=== PATIENT | female | born 1955 | race Caucasian/White ===

== ENCOUNTER → 2024-08-20 | Outpatient (CLI) | payer MEDICARE, MEDICAID, SELFPAY ==
[2024-08-20 12:44] LABS: INR 2.8 (0.9-1.3); Prothrombin Time 28.5 Seconds (9.0-12.2)
== END | disposition home or self-care (01) ==
LOC: COPL 11:20
PROVIDERS: PCP Nurse Practitioner Family; Referring Provider Internal Medicine Cardiovascular Disease; Visit Provider Internal Medicine Cardiovascular Disease
DX: I35.8 Other nonrheumatic aortic valve disorders (principal); I50.22 Chronic systolic (congestive) heart failure; I47.10 Supraventricular tachycardia, unspecified
CPT/HCPCS: 36415; 85610

== ENCOUNTER → 2024-09-04 | Outpatient (CLI) | payer MEDICARE, MEDICAID, SELFPAY ==
[2024-09-14 06:58] LABS: Fecal Globin Result NOT DETECTED (NOT DETECTED)
== END | disposition home or self-care (01) ==
LOC: SLDO 14:49
PROVIDERS: Referring Provider Nurse Practitioner Family; Visit Provider Nurse Practitioner Family
DX: Z12.11 Encounter for screening for malignant neoplasm of colon (principal)
CPT/HCPCS: 82274; G0328

== ENCOUNTER → 2024-09-21 | Outpatient (CLI) | payer MEDICARE, MEDICAID, SELFPAY ==
[2024-09-21 13:40] LABS: INR 2.4 (0.9-1.3); Prothrombin Time 24.5 Seconds (9.0-12.2)
== END | disposition home or self-care (01) ==
LOC: COPL 11:45
PROVIDERS: PCP Nurse Practitioner Family; Referring Provider Internal Medicine Cardiovascular Disease; Visit Provider Internal Medicine Cardiovascular Disease
DX: I35.8 Other nonrheumatic aortic valve disorders (principal); I50.22 Chronic systolic (congestive) heart failure; I47.10 Supraventricular tachycardia, unspecified
CPT/HCPCS: 36415; 85610

== ENCOUNTER → 2024-10-19 | Outpatient (CLI) | payer MEDICARE, MEDICAID, SELFPAY ==
[2024-10-19 13:33] LABS: INR 2.5 (0.9-1.3); Prothrombin Time 25.3 Seconds (9.0-12.2)
== END | disposition home or self-care (01) ==
LOC: COPL 11:56
PROVIDERS: PCP Nurse Practitioner Family; Referring Provider Internal Medicine Cardiovascular Disease; Visit Provider Internal Medicine Cardiovascular Disease
DX: I35.8 Other nonrheumatic aortic valve disorders (principal); I50.22 Chronic systolic (congestive) heart failure; I47.10 Supraventricular tachycardia, unspecified
CPT/HCPCS: 36415; 85610

== ENCOUNTER → 2024-11-20 | Outpatient (CLI) | payer MEDICARE, MEDICAID, SELFPAY ==
[2024-11-20 12:16] LABS: INR 2.3 (0.9-1.3); Prothrombin Time 23.8 Seconds (9.0-12.2)
== END | disposition home or self-care (01) ==
PROVIDERS: Referring Provider Internal Medicine Cardiovascular Disease; Visit Provider Internal Medicine Cardiovascular Disease
DX: I35.8 Other nonrheumatic aortic valve disorders (principal); I47.10 Supraventricular tachycardia, unspecified; I50.22 Chronic systolic (congestive) heart failure
CPT/HCPCS: 36415; 85610

== ENCOUNTER → 2024-12-18 | Outpatient (CLI) | payer MEDICARE, MEDICAID, SELFPAY ==
[2024-12-18 13:31] LABS: INR 1.9 (0.9-1.3); Prothrombin Time 19.8 Seconds (9.0-12.2)
== END | disposition home or self-care (01) ==
PROVIDERS: PCP Internal Medicine Cardiovascular Disease; Referring Provider Internal Medicine Cardiovascular Disease; Visit Provider Internal Medicine Cardiovascular Disease
DX: I35.8 Other nonrheumatic aortic valve disorders (principal); I50.22 Chronic systolic (congestive) heart failure; I47.10 Supraventricular tachycardia, unspecified
CPT/HCPCS: 36415; 85610

== ENCOUNTER → 2025-01-19 | Outpatient (CLI) | payer MEDICARE, MEDICAID, SELFPAY ==
[2025-01-19 13:36] LABS: INR 2.1 (0.9-1.3); Prothrombin Time 21.9 Seconds (9.0-12.2)
== END | disposition home or self-care (01) ==
LOC: COPL 12:16
PROVIDERS: PCP Registered Nurse Community Health; Referring Provider Internal Medicine Cardiovascular Disease; Visit Provider Internal Medicine Cardiovascular Disease
DX: I35.8 Other nonrheumatic aortic valve disorders (principal); I50.22 Chronic systolic (congestive) heart failure; I47.10 Supraventricular tachycardia, unspecified
CPT/HCPCS: 36415; 85610

== ENCOUNTER → 2025-02-15 | Outpatient (CLI) | payer MEDICARE, MEDICAID, SELFPAY ==
[2025-02-15 12:55] LABS: INR 2.6 (0.9-1.3); Prothrombin Time 26.4 Seconds (9.0-12.2)
== END | disposition home or self-care (01) ==
LOC: COPL 12:10
PROVIDERS: Referring Provider Internal Medicine Cardiovascular Disease; Visit Provider Internal Medicine Cardiovascular Disease
DX: I35.8 Other nonrheumatic aortic valve disorders (principal); I47.10 Supraventricular tachycardia, unspecified; I50.22 Chronic systolic (congestive) heart failure
CPT/HCPCS: 36415; 85610

== ENCOUNTER → 2025-03-18 | Outpatient (CLI) | payer MEDICARE, MEDICAID, SELFPAY ==
[2025-03-18 11:09] LABS: Basophils # (Auto) 0.1 Thou/mm3 (0.0-0.2); Basophils % (Auto) 1 % (0-2.5); Eosinophils # (Auto) 0.1 Thou/mm3 (0.0-0.5); Eosinophils % (Auto) 2 % (0-10); Hemoglobin 11.9 g/dL (12.0-16.0); Immature Granulocytes % (Auto) 0 % (0-0); Immature Granulocytes Auto 0.01 Thou/mm3 (0.00-0.00); Lymphocytes # (Auto) 1.4 Thou/mm3 (1.0-4.8); Lymphocytes % (Auto) 24 % (10-50); Mean Corpuscular Hemoglobin 28.7 pg (25.0-35.0); Mean Corpuscular Volume 85 fL (80-100); Monocytes # (Auto) 0.5 Thou/mm3 (0.0-0.8); Monocytes % (Auto) 9 % (0-12); Neutrophils # (Auto) 3.8 Thou/mm3 (1.8-7.7); Neutrophils % (Auto) 64 % (37-80); Nucleated Red Blood Cell % 0 /100 WBC (0); Platelet Count 178 Thou/mm3 (140-440); RDW Standard Deviation 43.7 fL (36.4-46.3); Red Blood Count 4.14 Miln/mm3 (4.00-5.20); White Blood Count 5.9 Thou/mm3 (3.6-11.0)
[2025-03-18 11:12] LABS: INR 2.1 (0.9-1.3); Prothrombin Time 22.2 Seconds (9.0-12.2)
[2025-03-18 11:42] LABS: Alanine Aminotransferase 21 U/L (10-49); Albumin, Serum 4.2 gm/dL (3.4-4.8); Alkaline Phosphatase 68 U/L (46-116); Anion Gap 9 (7-16); Aspartate Amino Transferase 36 U/L (0-34); BUN/Creatinine Ratio 26 Ratio (12-20); Bilirubin,Direct 0.3 mg/dL (0.0-0.3); Bilirubin,Total 0.8 mg/dL (0.3-1.2); Blood Urea Nitrogen 21 mg/dL (9-23); Calcium 8.6 mg/dL (8.3-10.6); Carbon Dioxide 23.3 mMol/L (20.0-31.0); Cardiac Risk Estimate 2.7 RATIO (3.7-5.6); Chloride 112 mMol/L (98-107); Cholesterol 106 mg/dL (132-200); Creatinine (Component) 0.8 mg/dL (0.6-1.3); Digoxin 1.4 ng/mL (0.8-2.0); Free T4 (Free Thyroxine) 1.03 ng/dL (0.89-1.76); Glucose 92 mg/dL (74-106); HDL Cholesterol 40 mg/dL (40-60); LDL Cholesterol,Calculated 49 mg/dL (0-130); Osmolality,Calculated 289 (275-295); Potassium 3.9 mMol/L (3.4-5.1); Sodium 144 mMol/L (136-145); Thyroid Stimulating Hormone 1.81 uIU/mL (0.55-4.78); Total Protein 6.7 gm/dL (5.7-8.2); Triglycerides 84 mg/dL (30-150); eGFR > 60 See Note
== END | disposition home or self-care (01) ==
LOC: COPL 09:40
PROVIDERS: Referring Provider Internal Medicine Cardiovascular Disease; Visit Provider Internal Medicine Cardiovascular Disease
DX: I11.0 Hypertensive heart disease with heart failure (principal); I50.22 Chronic systolic (congestive) heart failure; E78.5 Hyperlipidemia, unspecified; I47.10 Supraventricular tachycardia, unspecified; I35.8 Other nonrheumatic aortic valve disorders
CPT/HCPCS: 36415; 80048; 80061; 80076; 80162; 84439; 84443; 85025; 85610

== ENCOUNTER → 2025-04-19 | Outpatient (CLI) | payer MEDICARE, MEDICAID, SELFPAY ==
[2025-04-19 12:15] LABS: INR 2.1 (0.9-1.3); Prothrombin Time 22.1 Seconds (9.0-12.2)
== END | disposition home or self-care (01) ==
LOC: COPL 10:55
PROVIDERS: Referring Provider Internal Medicine Cardiovascular Disease; Visit Provider Internal Medicine Cardiovascular Disease
DX: I35.8 Other nonrheumatic aortic valve disorders (principal); I47.10 Supraventricular tachycardia, unspecified; I50.22 Chronic systolic (congestive) heart failure
CPT/HCPCS: 36415; 85610

== ENCOUNTER → 2025-04-29 | Outpatient (CLI) | payer MEDICARE, MEDICAID, SELFPAY ==
[2025-04-29 09:39] LABS: Basophils # (Auto) 0.1 Thou/mm3 (0.0-0.2); Basophils % (Auto) 1 % (0-2.5); Eosinophils # (Auto) 0.2 Thou/mm3 (0.0-0.5); Eosinophils % (Auto) 2 % (0-10); Hematocrit 39.0 % (36.0-46.0); Hemoglobin 12.7 g/dL (12.0-16.0); Immature Granulocytes Auto 0.02 Thou/mm3 (0.00-0.00); Lymphocytes # (Auto) 1.6 Thou/mm3 (1.0-4.8); Lymphocytes % (Auto) 20 % (10-50); Mean Corpuscular HGB Conc 32.6 g/dl (31.0-37.0); Mean Corpuscular Hemoglobin 29.0 pg (25.0-35.0); Mean Corpuscular Volume 89 fL (80-100); Monocytes # (Auto) 0.6 Thou/mm3 (0.0-0.8); Monocytes % (Auto) 8 % (0-12); Neutrophils # (Auto) 5.6 Thou/mm3 (1.8-7.7); Neutrophils % (Auto) 69 % (37-80); Nucleated Red Blood Cell # 0.00 Thou/mm3 (0.00-0.00); Nucleated Red Blood Cell % 0 /100 WBC (0); Platelet Count 195 Thou/mm3 (140-440); RDW Standard Deviation 45.1 fL (36.4-46.3); Red Blood Count 4.38 Miln/mm3 (4.00-5.20); White Blood Count 8.1 Thou/mm3 (3.6-11.0)
[2025-04-29 09:49] LABS: Glucose Estimated Average 105 mg/dL (80-131); Hemoglobin A1C 5.3 % Hgb (4.8-6.0)
[2025-04-29 09:57] LABS: Collection Type, Urine Clean Catch
[2025-04-29 10:02] LABS: Vitamin D 25 Hydroxy Total 45.5 ng/mL (7.3-40.2)
[2025-04-29 10:08] LABS: Alanine Aminotransferase 13 U/L (10-49); Albumin, Serum 4.4 gm/dL (3.4-4.8); Albumin/Globulin Ratio 1.5 (1.2-2.2); Alkaline Phosphatase 69 U/L (46-116); Anion Gap 12 (7-16); Aspartate Amino Transferase 26 U/L (0-34); BUN/Creatinine Ratio 17 Ratio (12-20); Bilirubin,Total 1.2 mg/dL (0.3-1.2); Blood Urea Nitrogen 15 mg/dL (9-23); Calcium 9.5 mg/dL (8.3-10.6); Calcium (Corrected) 9.5 mg/dL (8.5-10.1); Carbon Dioxide 24.4 mMol/L (20.0-31.0); Cardiac Risk Estimate 3.2 RATIO (3.7-5.6); Chloride 108 mMol/L (98-107); Cholesterol 139 mg/dL (132-200); Creatinine (Component) 0.9 mg/dL (0.6-1.3); Globulin 3.0 gm/dL (2.3-3.5); Glucose 98 mg/dL (74-106); HDL Cholesterol 43 mg/dL (40-60); LDL Cholesterol,Calculated 63 mg/dL (0-130); Osmolality,Calculated 287 (275-295); Potassium 4.4 mMol/L (3.4-5.1); Sodium 144 mMol/L (136-145); Thyroid Stimulating Hormone 1.91 uIU/mL (0.55-4.78); Total Protein 7.4 gm/dL (5.7-8.2); Triglycerides 166 mg/dL (30-150); eGFR > 60 See Note
[2025-04-29 10:23] LABS: Bilirubin,Urine Negative (Negative); Blood,Urine 1+ (Negative); Clarity,Urine Clear (Clear/Hazy); Color,Urine Yellow (Lt Yel-Yel); Culture Indicated,Urine Not Indicated; Glucose, Urine Negative (Negative); Ketones,Urine Negative (Negative); Leukocyte Esterase,Urine Negative (Negative); Nitrite,Urine Negative (Negative); PH,Urine 5.5 (5.0-7.0); Protein,Urine Trace (Neg - Trace); RBC,Urine 1 /hpf (0-3); Specific Gravity,Urine 1.023 (1.001-1.035); Squamous Epithelial Cell,Urine < 1 /hpf (0-5); Urobilinogen,Urine Negative mg/dL (0.0-1.0); WBC,Urine 2 /hpf (0-5)
== END | disposition home or self-care (01) ==
LOC: COPL 08:49
DX: Z00.00 Encounter for general adult medical examination without abnormal findings (principal); R80.9 Proteinuria, unspecified; Z11.4 Encounter for screening for human immunodeficiency virus [HIV]; Z79.899 Other long term (current) drug therapy
CPT/HCPCS: 36415; 80053; 80061; 81001; 82306; 83036; 84443; 85025

== ENCOUNTER → 2025-05-20 | Outpatient (CLI) | payer MEDICARE, MEDICAID, SELFPAY ==
[2025-05-20 13:40] LABS: INR 1.9 (0.9-1.3); Prothrombin Time 19.4 Seconds (9.0-12.2)
== END | disposition home or self-care (01) ==
LOC: COPL 11:43
PROVIDERS: Referring Provider Internal Medicine Cardiovascular Disease; Visit Provider Internal Medicine Cardiovascular Disease
DX: I35.8 Other nonrheumatic aortic valve disorders (principal); I47.10 Supraventricular tachycardia, unspecified; I50.22 Chronic systolic (congestive) heart failure
CPT/HCPCS: 36415; 85610

== ENCOUNTER → 2025-05-28 | Outpatient (CLI) | payer MEDICARE, MEDICAID, SELFPAY ==
[2025-05-28 12:18] LABS: INR 3.9 (0.9-1.3)
[2025-05-28 12:42] LABS: Prothrombin Time 38.6 Seconds (9.0-12.2)
== END | disposition home or self-care (01) ==
LOC: COPL 10:49
PROVIDERS: PCP Internal Medicine; Referring Provider Internal Medicine Cardiovascular Disease; Visit Provider Internal Medicine Cardiovascular Disease
DX: I35.8 Other nonrheumatic aortic valve disorders (principal); I47.10 Supraventricular tachycardia, unspecified; I50.22 Chronic systolic (congestive) heart failure
CPT/HCPCS: 36415; 85610

== ENCOUNTER → 2025-06-07 | Outpatient (CLI) | payer MEDICARE, MEDICAID, SELFPAY ==
[2025-06-07 13:08] LABS: Prothrombin Time > 63.0 Seconds (9.0-12.2)
== END | disposition home or self-care (01) ==
LOC: COPL 10:49
PROVIDERS: Referring Provider Internal Medicine Cardiovascular Disease; Visit Provider Internal Medicine Cardiovascular Disease
DX: I35.8 Other nonrheumatic aortic valve disorders (principal); I47.10 Supraventricular tachycardia, unspecified; I50.22 Chronic systolic (congestive) heart failure
CPT/HCPCS: 36415; 85610

== ENCOUNTER → 2025-06-09 | Outpatient (CLI) | payer MEDICARE, MEDICAID, SELFPAY ==
[2025-06-09 11:50] LABS: INR 4.0 (0.9-1.3)
[2025-06-09 11:52] LABS: Prothrombin Time 39.8 Seconds (9.0-12.2)
== END | disposition home or self-care (01) ==
LOC: COPL 10:18
PROVIDERS: PCP Nurse Practitioner Family; Referring Provider Internal Medicine Cardiovascular Disease; Visit Provider Internal Medicine Cardiovascular Disease
DX: I35.8 Other nonrheumatic aortic valve disorders (principal); I47.10 Supraventricular tachycardia, unspecified; I50.22 Chronic systolic (congestive) heart failure
CPT/HCPCS: 36415; 85610

== ENCOUNTER → 2025-06-11 | Outpatient (CLI) | payer MEDICARE, MEDICAID, SELFPAY ==
[2025-06-11 11:30] LABS: INR 1.7 (0.9-1.3); Prothrombin Time 18.4 Seconds (9.0-12.2)
== END | disposition home or self-care (01) ==
LOC: COPL 10:12
PROVIDERS: Referring Provider Internal Medicine Cardiovascular Disease; Visit Provider Internal Medicine Cardiovascular Disease
DX: I35.8 Other nonrheumatic aortic valve disorders (principal); I47.10 Supraventricular tachycardia, unspecified; I50.22 Chronic systolic (congestive) heart failure
CPT/HCPCS: 36415; 85610

== ENCOUNTER → 2025-06-16 | Outpatient (CLI) | payer MEDICARE, MEDICAID, SELFPAY ==
[2025-06-16 12:11] LABS: INR 1.1 (0.9-1.3); Prothrombin Time 12.4 Seconds (9.0-12.2)
== END | disposition home or self-care (01) ==
PROVIDERS: Referring Provider Internal Medicine Cardiovascular Disease; Visit Provider Internal Medicine Cardiovascular Disease
DX: I35.8 Other nonrheumatic aortic valve disorders (principal); I47.10 Supraventricular tachycardia, unspecified; I50.22 Chronic systolic (congestive) heart failure
CPT/HCPCS: 36415; 85610

== ENCOUNTER → 2025-06-22 | Outpatient (CLI) | payer MEDICARE, MEDICAID, SELFPAY ==
[2025-06-22 13:28] LABS: INR 2.2 (0.9-1.3); Prothrombin Time 22.3 Seconds (9.0-12.2)
== END | disposition home or self-care (01) ==
LOC: COPL 11:24
PROVIDERS: Referring Provider Internal Medicine Cardiovascular Disease; Visit Provider Internal Medicine Cardiovascular Disease
DX: I35.8 Other nonrheumatic aortic valve disorders (principal); I47.10 Supraventricular tachycardia, unspecified; I50.22 Chronic systolic (congestive) heart failure
CPT/HCPCS: 36415; 85610

== ENCOUNTER → 2025-07-21 | Outpatient (CLI) | payer MEDICARE, MEDICAID, SELFPAY ==
[2025-07-21 15:20] LABS: INR 3.3 (0.9-1.3)
[2025-07-21 15:49] LABS: Prothrombin Time 31.9 Seconds (9.0-12.2)
== END | disposition home or self-care (01) ==
LOC: COPL 13:13
PROVIDERS: Referring Provider Internal Medicine Cardiovascular Disease; Visit Provider Internal Medicine Cardiovascular Disease
DX: I35.8 Other nonrheumatic aortic valve disorders (principal); I47.10 Supraventricular tachycardia, unspecified; I50.22 Chronic systolic (congestive) heart failure
CPT/HCPCS: 36415; 85610

== ENCOUNTER → 2025-07-28 | Outpatient (CLI) | payer MEDICARE, MEDICAID, SELFPAY ==
[2025-07-28 14:00] LABS: INR 2.4 (0.9-1.3); Prothrombin Time 23.5 Seconds (9.0-12.2)
== END | disposition home or self-care (01) ==
LOC: COPL 12:01
PROVIDERS: Referring Provider Internal Medicine Cardiovascular Disease; Visit Provider Internal Medicine Cardiovascular Disease
DX: I35.8 Other nonrheumatic aortic valve disorders (principal); I47.10 Supraventricular tachycardia, unspecified; I50.22 Chronic systolic (congestive) heart failure
CPT/HCPCS: 36415; 85610

== ENCOUNTER → 2025-08-23 | Outpatient (CLI) | payer MEDICARE, MEDICAID, SELFPAY ==
[2025-08-23 12:43] LABS: INR 1.8 (0.9-1.3); Prothrombin Time 18.2 Seconds (9.0-12.2)
== END | disposition home or self-care (01) ==
PROVIDERS: PCP Family Medicine; Referring Provider Internal Medicine Cardiovascular Disease; Visit Provider Internal Medicine Cardiovascular Disease
DX: I35.8 Other nonrheumatic aortic valve disorders (principal); I47.10 Supraventricular tachycardia, unspecified; I50.22 Chronic systolic (congestive) heart failure
CPT/HCPCS: 36415; 85610

== ENCOUNTER → 2025-09-01 | Outpatient (CLI) | payer MEDICARE, MEDICAID, SELFPAY ==
[2025-09-01 11:09] LABS: INR 2.6 (0.9-1.3); Prothrombin Time 25.3 Seconds (9.0-12.2)
== END | disposition home or self-care (01) ==
LOC: COPL 10:31
PROVIDERS: Referring Provider Internal Medicine Cardiovascular Disease; Visit Provider Internal Medicine Cardiovascular Disease
DX: I35.8 Other nonrheumatic aortic valve disorders (principal); I47.10 Supraventricular tachycardia, unspecified; I50.22 Chronic systolic (congestive) heart failure
CPT/HCPCS: 36415; 85610

== ENCOUNTER → 2025-09-16 | Outpatient (CLI) | payer MEDICARE, MEDICAID, SELFPAY ==
[2025-09-16 17:09] LABS: INR 4.1 (0.9-1.3)
[2025-09-16 17:11] LABS: Prothrombin Time 38.5 Seconds (9.0-12.2)
== END | disposition home or self-care (01) ==
LOC: COPL 14:12
PROVIDERS: PCP Internal Medicine; Referring Provider Internal Medicine Cardiovascular Disease; Visit Provider Internal Medicine Cardiovascular Disease
DX: I35.8 Other nonrheumatic aortic valve disorders (principal); I47.10 Supraventricular tachycardia, unspecified; I50.22 Chronic systolic (congestive) heart failure
CPT/HCPCS: 36415; 85610

== ENCOUNTER → 2025-09-28 | Outpatient (CLI) | payer MEDICARE, MEDICAID, SELFPAY ==
[2025-09-28 15:11] LABS: INR 3.0 (0.9-1.3); Prothrombin Time 28.8 Seconds (9.0-12.2)
== END | disposition home or self-care (01) ==
LOC: COPL 11:58
PROVIDERS: Referring Provider Internal Medicine Cardiovascular Disease; Visit Provider Internal Medicine Cardiovascular Disease
DX: I35.8 Other nonrheumatic aortic valve disorders (principal); I47.10 Supraventricular tachycardia, unspecified; I50.22 Chronic systolic (congestive) heart failure
CPT/HCPCS: 36415; 85610